=== PATIENT | female | born 1935 | race Caucasian/White ===

== ENCOUNTER 2024-11-22 19:15 | Emergency (ER) | payer OTHER, MEDICARE ==
--- NOTE | 2024-11-22 20:04 | RAD REPORT ---
EXAMINATION: XR LEFT SHOULDER CLINICAL INDICATION: Female, 89 years old. PAIN TECHNIQUE: Multiple views of the left shoulder were obtained. COMPARISON: No prior exam. FINDINGS: Diffuse osteopenia. High riding humeral head may indicate underlying rotator cuff tear. No acute fracture or dislocation.
[2024-11-22 20:13] LABS: PT Prothrombin Time 11.9 SECONDS (10-13.0); PTT, Activated Partial Thromb 26.4 SECONDS (27.2-37.4); Protime INR 1.05
[2024-11-22 20:18] LABS: Anion Gap 9.7 mEq/L (5.0-15.0); Potassium 3.7 mEq/L (3.5-5.1)
--- NOTE | 2024-11-22 20:18 | RAD REPORT ---
EXAM: CT brain without contrast HISTORY: TRAUMA COMPARISON: 09/05/2016 TECHNIQUE: Multiple contiguous axial images were obtained and a CT of the brain without contrast. Sag ittal and coronal reformats were performed. One or more of the following dose reduction techniques were used: Automated exposure control, adjust ment of the mA and/or kV according to patient size, and/or iterative reconstruction. FINDINGS: No evidence of hydrocephalus, intracranial hemorrhage, or extra-axial fluid collection. Moderate brain atrophy with moderate periventricular and deep white matter chronic microvascular isc hemic changes present. No evidence of midline shift or areas of brain edema. The calvarium is intact. The visualized paranasal sinuses and mastoid air cells are essentially clear . IMPRESSION: No evidence of acute intracranial abnormality. EXAM: CT of the cervical spine without contrast HISTORY: Neck pain, injury TRAUMA TECHNIQUE: Multiple contiguous axial images were obtained in a CT of the cervical spine without contr ast. Sagittal and coronal reformats were performed. FINDINGS: The vertebral bodies demonstrate normal height and alignment. No evidence of acute fracture or subluxation.. Moderate multilevel mid and lower cervical degenerative changes. No prevertebral soft tissue swelling is seen. The posterior facets are well aligned. Normal alignment of the skull base with the cervical spine is seen. Moderate bilateral carotid atherosclerosis. The lung apices are unremarkable. IMPRESSION: No evidence of acute osseous abnormality of the cervical spine.
--- NOTE | 2024-11-22 20:18 | RAD REPORT ---
EXAMINATION: CT MAXILLOFACIAL WITHOUT CONTRAST CLINICAL INDICATION: TRAUMA TECHNIQUE: Axial images were obtained through the facial bones and orbits without intravenous contras t. Sagittal and coronal reconstructions were created from the data. One or more of the following dose reduction techniques were used: Automated exposure control, adjustment of the mA and/or kV accor ding to patient size, and/or iterative reconstruction. Unless otherwise specified, incidental findings do not require dedicated imaging follow-up. COMPARISON: No prior exam. FINDINGS: SOFT TISSUE: No significant abnormalities. BONES: No evidence of fracture, dislocation, or aggressive osseous lesions. No lesion of the visuali zed skull base or calvarium. ORBITS: The globes are intact. No intraorbital hemorrhage or mass. SINUSES: The visualized paranasal sinuses and mastoid air cells are essentially clear. IMPRESSION: No acute or concerning abnormalities.
[2024-11-22 20:19] LABS: Specific Gravity 1.025 (1.005-1.030); Sqamous Epithelial <5 /HPF (None Seen); Urine Bacteria <20 /HPF (<20); Urine Bilirubin NEGATIVE (Negative); Urine Blood Negative (Negative); Urine Clarity Clear (Clear); Urine Color Light-Yellow (Yellow); Urine Culture Reflex Order NOT NEEDED; Urine Glucose 3+ (Negative); Urine Ketones NEGATIVE (Negative); Urine Micro Reflex YN NO BILL MICROSCOPIC; Urine Mucus Slight /HPF (None Seen); Urine Nitrite NEGATIVE (Negative); Urine Protein NEGATIVE (Negative); Urine RBC <5 /HPF (None Seen); Urine Urobilinogen Normal (Normal)
[2024-11-22] MEDS ORDERED: FLUORESCEIN SODIUM 1 MG/WRAP ONE (20:31)
[2024-11-22] MEDS ORDERED: TETRACAINE HCL 0.5% 4ML OPTH ONE (20:31)
[2024-11-22] MEDS ORDERED: NA CHLORIDE 0.9% 1,000 ML ONE (20:31)
[2024-11-22 20:40] LABS: Absolute Basophils 0.1 K/uL (0-0.5); Absolute Eosinophils 0.1 K/uL (0-0.5); Absolute Lymphocytes (CBC) 1.5 K/uL (0.7-4.9); Absolute Monocytes 0.7 K/uL (0.1-1.3); Absolute Neutrophil 7.1 K/uL (1.8-8.0); Eosinophils % 1.4 % (0-4.4); Hematocrit 36.7 % (36.0-45.0); Lymphocytes % 15.5 % (15.3-44.8); MCHC 32.8 g/dL (32.0-36.0); MCV 88.4 fL (80-100); MPV 7.9 fL (7.6-11.3); Monocytes % 7.7 % (3.3-12.3); Neutrophils % 74.4 % (41.7-73.7); Nucleated Red Blood Cells % 0.1 % (0-0); Platelets 327 thou/uL (152-406); RBC Red Blood Cell Count 4.15 M/uL (3.86-4.86); Red Cell Distribution Width 14.3 % (12.1-15.2)
--- NOTE | 2024-11-22 22:14 | ER ---
Nurse's Notes [facility] Name: Milli Fang Age: 89 yrs Sex: Female : 1935 Arrival Date: 11/22/2024 Time: 19:15 Bed 2 Private MD: Diagnosis: Fall on same level, unspecified;Conjunctival hemorrhage, right eye Presentation: 11/22 19:20 Chief complaint: EMS states: patient from [place] slipped and fell, hitting R eye on al5 corner [facility]. patient on blood thinner, no loc. Care prior to arrival: None. Mechanism of Injury: Fall from standing position. Trauma event details: Injury occurred in the [facility], Injury occurred: at home. Injury occurred: November 22, 2024. 19:20 Acuity: BILL 3 al5 19:20 Method Of Arrival: EMS: [facility] al5 19:29 Coronavirus screen: At this time, the client does not indicate any symptoms associated al5 with coronavirus-19. Ebola Screen: No symptoms or risks identified at this time. Initial Sepsis Screen: Does the patient meet any 2 criteria? No. Patient's initial sepsis screen is negative. Does the patient have a suspected source of infection? No. Patient's initial sepsis screen is negative. Risk Assessment: Do you want to hurt yourself or someone else? Patient reports no desire to harm self or others. Onset of symptoms was November 22, 2024. Triage Assessment: 19:29 General: see trauma assessment. al5 Trauma Activation: Physician: ED Physician; Name: ; Notified At: ; Arrived At: Physician: General Surgeon; Name: ; Notified At: ; Arrived At: Physician: Radiology; Name: ; Notified At: ; Arrived At: Physician: Respiratory; Name: ; Notified At: ; Arrived At: Physician: Lab; Name: ; Notified At: ; Arrived At: 19:20 n/a al5 Historical: - Allergies: 19:29 ambien; al5 19:29 Lyrica; al5 - Home Meds: 19:31 aspirin 81 mg Oral tablet,chewable 1 tab daily [Active]; atorvastatin 10 mg oral tablet al5 1 tab every day at bedtime [Active]; clopidogrel 75 mg oral tablet 1 tab every other day [Active]; donepezil 10 mg oral tablet 1 tab daily [Active]; duloxetine 60 mg oral capsule,delayed release (e.c.) 1 cap 2 times per day [Active]; esomeprazole magnesium 40 mg oral capsule,delayed release (e.c.) 1 cap daily [Active]; fentanyl 12 mcg/hr Topical patch, transdermal 72 hours 1 patch every 72 hours [Active]; gabapentin 100 mg oral capsule 1 cap daily [Active]; insulin lispro 100 unit/mL subcutaneous Insulin Pen 8 units once daily before lunch [Active]; insulin lispro 100 unit/mL subcutaneous Insulin Pen 3 units once daily before dinner [Active]; isosorbide mononitrate 30 mg Oral Tablet, Extended Release 24 hr 1 tab daily [Active]; Lantus U-100 Insulin 100 unit/mL Sub-Q solution 30 units daily [Active]; latanoprost 0.005 % ophthalmic (eye) drops 1 drop every evening [Active]; levetiracetam 250 mg oral tablet 1 tabs 2 times per day [Active]; levothyroxine 75 mcg capsule 1 cap daily [Active]; metoprolol succinate 100 mg oral Tablet, Extended Release 24 hr 1 tab daily [Active]; Myrbetriq 50 mg oral Tablet, Extended Release 24 hr 1 tab daily [Active]; spironolactone 25 mg Oral tablet 1 tab daily [Active]; trazodone 150 mg Oral tablet 1 tab nightly [Active]; Trulicity 0.75 mg/0.5 mL subcutaneous Pen Injector 0.75 mg every week on thursday [Active]; Vitamin D3 125 mcg (5,000 unit) oral tablet 1 tab daily [Active]; loperamide 2 mg Oral capsule every 4 hours as needed for diarrhea [Active]; meclizine 25 mg Oral tablet 3 times a day as needed for dizziness [Active]; - PMHx: 19:29 Seizure; Diabetes mellitus; Hypertensive disorder; Depressive disorder; Hypothyroidism; 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 - Infectious Disease History:: Denies. - Social history:: Smoking status: unknown. Screenin:27 Abuse screen: Denies threats or abuse. Denies injuries from another. Nutritional al5 screening: No deficits noted. Tuberculosis screening: No symptoms or risk factors identified. 19:44 [facility] ED Fall Risk Assessment (Adult) History of falling in the last 3 months, al5 including since admission Yes- single mechanical fall (1 pt) Confusion or Disorientation Yes (5 pts) Intoxicated or Sedated No (0 pts) Impaired Gait Yes (1 pt) Mobility Assist Device Used Yes (1 pt) Altered Elimination No (0 pt) Score/Fall Risk Level 3 or more points = High Risk Oriented to surroundings, Maintained a safe environment, Hourly rounding (assess needs \T\ fall precautionary measures) done, Utilized family, sitter, or virtual instrument panel assembler as indicated. Primary Survey: 19:26 NO uncontrolled hemorrhage observed. A: The client is alert. Airway: patent, No al5 supplemental oxygen in use on arrival. Breathing/Chest: Respiratory effort: spontaneous, unlabored, Respiratory pattern: regular. Circulation: Skin color: pink, Skin temperature: warm, dry. Disability Pupils are equal, round, reactive to light and accommodation. Client is alert. Exposure/Environment: Obvious injury(ies) are noted at this time: R eye. 20:36 Reassessment Alertness and Airway: Awake and alert. The airway is patent. Breathing: al5 Spontaneous respiratory effort, equal unlabored respirations, breath sounds clear bilaterally, regular pattern with symmetrical chest rise and fall. Circulation: No external hemorrhage noted. Regular and strong central pulse, skin warm/dry/normal color. Disability: Pupils Pupils are equal, round, reactive to light and accomodation. Alert. Secondary Survey: 19:27 HEENT: No deficits noted. Eyes: Other some blood in R sclera. Gastrointestinal: No al5 deficits noted. : No deficits noted. Musculoskeletal: No deficits noted. Assessment: 19:21 General: Appears in no apparent distress. comfortable, Behavior is calm, cooperative. al5 Pain: Complains of pain in head. Neuro: Level of Consciousness is awake, obeys commands, Oriented to person, situation. EENT: Sclera/Cornea some blood to R sclera. Cardiovascular: Capillary refill < 3 seconds Patient's skin is warm and dry. Respiratory: Airway is patent Respiratory effort is even, unlabored, Respiratory pattern is regular, symmetrical. GI: No signs and/or symptoms were reported involving the gastrointestinal system. : No signs and/or symptoms were reported regarding the genitourinary system. Derm: Skin is intact, Skin is pink, warm \T\ dry. normal. Musculoskeletal: No signs and/or symptoms reported regarding the musculoskeletal system. 20:36 Reassessment: Patient appears in no apparent distress at this time. No changes from al5 previously documented assessment. Patient and/or family updated on plan of care and expected duration. Pain level reassessed. alert to baseline, respirations even and unlabored. family at bedside. 23:24 Reassessment: Pt assisted into wheel chair and into families car. Pt awake and alert. jb4 Able to ambulate with assistance to wheelchair and car. Vital Signs: 19:27 BP 177 / 71; Pulse 79; Resp 16; Temp 98.1; Pulse Ox 100% on R/A; Weight 83.46 kg; al5 Height 5 ft. 7 in. ; 20:00 BP 183 / 83; Pulse 78; Resp 16; Pulse Ox 99% ; al5 20:30 BP 175 / 73; Pulse 72; Resp 16; Pulse Ox 100% ; al5 19:27 Body Mass Index 28.82 (83.46 kg, 170.18 cm) al5 Mary Coma Score: 19:27 Eye Response: spontaneous(4). Motor Response: obeys commands(6). Verbal Response: al5 confused(4). Total: 14. 19:27 oriented to baseline aaox2 al5 Trauma Score (Adult): 19:27 Eye Response: spontaneous(1); Verbal Response: confused(1); Motor Response: obeys al5 commands(2); Systolic BP: > 89 mm Hg(4); Respiratory Rate: 10 to 29 per min(4); [place] Score: 14; Trauma Score: 12; orient to baseline, aaox2 ED Course: 19:20 Patient arrived in ED. al5 19:21 Triage completed. al5 19:27 Patient has correct armband on for positive identification. Bed in low position. Call al5 light in reach. Side rails up X2. Patient maintains SpO2 saturation greater than 95% on room air. 19:27 No provider procedures requiring assistance completed. Patient maintains SpO2 al5 saturation greater than 95% on room air. 19:28 Arm band placed on right wrist. Patient placed in the treatment room, in view of staff al5 members, on pulse oximetry. 19:28 Thermoregulation: warm blanket given to patient. al5 19:32 Omaira Cantu PA-C is PHCP. sb4 19:32 Capo Elder MD is Attending Physician. sb4 19:44 Provided Education on: plan of care. al5 19:45 Fay Yancey, RN is Primary Nurse. al5 19:51 Shoulder Left (2 View) XRAY In Process Unspecified. EDMS 20:08 Inserted saline lock: 22 gauge in right antecubital area, using aseptic technique. al5 Blood collected. Flushed with 10 mL NS. 20:12 Head C Spine MPR Wo Con CT In Process Unspecified. EDMS 20:12 Facial Bones W/O Con CT In Process Unspecified. EDMS 23:24 IV discontinued, intact, bleeding controlled, No redness/swelling at site. Pressure jb4 dressing applied. Administered Medications: 20:35 Drug: NS 0.9% IV 1000 ml IV at 1 bolus Per protocol; to be given as a bolus over 60 al5 minutes Route: IV; Rate: 1 bolus; Site: right antecubital; Medication: 19:43 VIS not applicable for this client. al5 Intake: 19:27 n/a al5 Outcome: 22:13 Discharge ordered by MD. sb4 23:24 Discharged to home via wheelchair, with family, jb4 23:24 Condition: stable 23:24 Discharge instructions given to family, Instructed on discharge instructions, follow up and referral plans. Demonstrated understanding of instructions, follow-up care, 23:28 Patient left the ED. jb4 Signatures: Dispatcher [employer] Jaret Sierra RN RN jb4 Omaira Cantu PA-C PA-C sb4 Fay Yancey, ILIANA RN al5 Corrections: (The following items were deleted from the chart) 20:36 19:27 HEENT: No deficits noted. al5 al5
--- NOTE | 2024-11-22 22:14 | EDPHYS ---
Physician Documentation [facility] Name: Milli Fang Age: 89 yrs Sex: Female : 1935 Arrival Date: 11/22/2024 Time: 19:15 Bed 2 Private MD: ED Physician Capo Elder HPI: 11/22 22:41 This 89 yrs old Female presents to ER via EMS with complaints of Fall Injury, Eye sb4 Injury. 22:41 Patient states that she was moving from her wheelchair to her bed when she tripped and sb4 fell forward, hitting her head and right eye against the corner of a piece of furniture. No loss of consciousness. She has bruising to the right face forehead and a small subconjunctival hemorrhage in the right eye. Is complaining of pain in her neck and left arm. Historical: - Allergies: 19:29 ambien; al5 19:29 Lyrica; al5 - Home Meds: 19:31 aspirin 81 mg Oral tablet,chewable 1 tab daily [Active]; atorvastatin 10 mg oral tablet al5 1 tab every day at bedtime [Active]; clopidogrel 75 mg oral tablet 1 tab every other day [Active]; donepezil 10 mg oral tablet 1 tab daily [Active]; duloxetine 60 mg oral capsule,delayed release (e.c.) 1 cap 2 times per day [Active]; esomeprazole magnesium 40 mg oral capsule,delayed release (e.c.) 1 cap daily [Active]; fentanyl 12 mcg/hr Topical patch, transdermal 72 hours 1 patch every 72 hours [Active]; gabapentin 100 mg oral capsule 1 cap daily [Active]; insulin lispro 100 unit/mL subcutaneous Insulin Pen 8 units once daily before lunch [Active]; insulin lispro 100 unit/mL subcutaneous Insulin Pen 3 units once daily before dinner [Active]; isosorbide mononitrate 30 mg Oral Tablet, Extended Release 24 hr 1 tab daily [Active]; Lantus U-100 Insulin 100 unit/mL Sub-Q solution 30 units daily [Active]; latanoprost 0.005 % ophthalmic (eye) drops 1 drop every evening [Active]; levetiracetam 250 mg oral tablet 1 tabs 2 times per day [Active]; levothyroxine 75 mcg capsule 1 cap daily [Active]; metoprolol succinate 100 mg oral Tablet, Extended Release 24 hr 1 tab daily [Active]; Myrbetriq 50 mg oral Tablet, Extended Release 24 hr 1 tab daily [Active]; spironolactone 25 mg Oral tablet 1 tab daily [Active]; trazodone 150 mg Oral tablet 1 tab nightly [Active]; Trulicity 0.75 mg/0.5 mL subcutaneous Pen Injector 0.75 mg every week on thursday [Active]; Vitamin D3 125 mcg (5,000 unit) oral tablet 1 tab daily [Active]; loperamide 2 mg Oral capsule every 4 hours as needed for diarrhea [Active]; meclizine 25 mg Oral tablet 3 times a day as needed for dizziness [Active]; - PMHx: 19:29 Seizure; Diabetes mellitus; Hypertensive disorder; Depressive disorder; Hypothyroidism; 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 - Infectious Disease History:: Denies. - Social history:: Smoking status: unknown. ROS: 22:41 Constitutional: Negative for fever, chills, and weight loss, sb4 22:41 MS/extremity: Positive for injury or acute deformity, pain, of the neck and head, Left shoulder, 22:41 All other systems are negative, Exam: 22:41 Cardiovascular: Regular rate and rhythm with a normal S1 and S2. Respiratory: No sb4 increased work of breathing, no retractions or nasal flaring. Abdomen/GI: Soft, non-tender, no distension. 22:41 Constitutional: The patient appears in no acute distress, alert, awake, 22:41 Head/face: Noted is ecchymosis, that is mild, of the forehead, 22:41 Eyes: Periorbital structures: appear normal, no acute changes, Pupils: equal, round, and reactive to light and accomodation, Extraocular movements: intact throughout, Conjunctiva: subconjunctival hemorrhage(s), seen in the right eye, at 7 o'clock, Corneas: abrasion, is not appreciated, foreign body, is not appreciated, a fluorescein strip employed to appreciate the findings, 22:41 Musculoskeletal/extremity: Extremities: noted in the left arm: pain, There is no evidence of decreased ROM, deformity, ecchymosis, swelling, tenderness, Vital Signs: 19:27 BP 177 / 71; Pulse 79; Resp 16; Temp 98.1; Pulse Ox 100% on R/A; Weight 83.46 kg; al5 Height 5 ft. 7 in. ; 20:00 BP 183 / 83; Pulse 78; Resp 16; Pulse Ox 99% ; al5 20:30 BP 175 / 73; Pulse 72; Resp 16; Pulse Ox 100% ; al5 19:27 Body Mass Index 28.82 (83.46 kg, 170.18 cm) al5 Mary Coma Score: 19:27 Eye Response: spontaneous(4). Motor Response: obeys commands(6). Verbal Response: al5 confused(4). Total: 14. 19:27 oriented to baseline aaox2 al5 Trauma Score (Adult): 19:27 Eye Response: spontaneous(1); Verbal Response: confused(1); Motor Response: obeys al5 commands(2); Systolic BP: > 89 mm Hg(4); Respiratory Rate: 10 to 29 per min(4); [place] Score: 14; Trauma Score: 12; orient to baseline, aaox2 Procedures: 22:44 Eye Exam: Tetracaine. sb4 MDM: 19:32 Medical Screening Exam initiated sb4 22:44 Data reviewed: vital signs, nurses notes, EMS record, lab test result(s), radiologic sb4 studies, and as a result, I will discharge patient. Historians other than the Patient: Daughter/Son: Daughters. Counseling: I had a detailed discussion with the patient and/or guardian regarding the historical points, exam findings, and any diagnostic results supporting the discharge/admit diagnosis, lab results, radiology results, the need for outpatient follow up, for definitive care, to return to the emergency department if symptoms worsen or persist or if there are any questions or concerns that arise at home. 11/22 19:40 Order name: CBC with Diff; Complete Time: 20:43 sb4 11/22 19:40 Order name: BMP; Complete Time: 20:19 sb4 11/22 19:40 Order name: UAM; Complete Time: 20:19 sb4 11/22 19:40 Order name: PT-INR; Complete Time: 20:13 sb4 11/22 19:40 Order name: Ptt, Activated; Complete Time: 20:13 sb4 11/22 19:40 Order name: Head C Spine MPR Wo Con CT; Complete Time: 20:19 sb4 11/22 19:40 Order name: Facial Bones W/O Con CT; Complete Time: 20:19 sb4 11/22 19:40 Order name: Shoulder Left (2 View) XRAY; Complete Time: 20:05 sb4 11/22 19:40 Order name: IV Start; Complete Time: 19:57 sb4 11/22 20:20 Order name: Fluoresene Opth strip; Complete Time: 20:30 sb4 Administered Medications: 20:35 Drug: NS 0.9% IV 1000 ml IV at 1 bolus Per protocol; to be given as a bolus over 60 al5 minutes Route: IV; Rate: 1 bolus; Site: right antecubital; Disposition Summary: 11/22/24 22:13 Discharge Ordered Notes: Location: Home sb4 Problem: new sb4 Symptoms: have improved sb4 Condition: Stable sb4 Diagnosis - Fall on same level, unspecified sb4 - Conjunctival hemorrhage, right eye sb4 Followup: sb4 - With: Emergency Department - When: As needed - Reason: Trouble breathing, Worsening of condition Discharge Instructions: - Discharge Summary Sheet sb4 - Subconjunctival Hemorrhage sb4 - Fall Prevention in the Home, Adult, [id number] sb4 - Head Injury, Adult, [id number] sb4 Forms: - Patient Portal Instructions sb4 - Leadership Thank You Letter sb4 Signatures: Dispatcher [employer] EDOmaira Angel PA-C PA-C sb4 Fay Yancey RN RN al5 Corrections: (The following items were deleted from the chart) 19:41 19:41 CBC+H.LAB.BRZ ordered. EDMS EDMS 19:41 19:41 BASIC METABOLIC PANEL+C.LAB.BRZ ordered. EDMS EDMS 19:41 19:41 Urinalysis W/Microscopic+U.LAB.BRZ ordered. EDMS EDMS 19:41 19:41 PROTIME (+INR)+COAG.LAB.BRZ ordered. EDMS EDMS 19:41 19:41 PTT, ACTIVATED+COAG.LAB.BRZ ordered. EDMS EDMS
[2024-11-23 06:08] VITALS: TEMP 98.1
[2024-11-23 06:24] VITALS: BP 175/73; O2SAT 100
== END 2024-11-22 23:28 | disposition home or self-care (01) ==
LOC: ER 19:15
DX: H11.31 Conjunctival hemorrhage, right eye (principal); M54.2 Cervicalgia; M79.602 Pain in left arm; W18.30XA Fall on same level, unspecified, initial encounter; E11.9 Type 2 diabetes mellitus without complications; Z79.4 Long term (current) use of insulin; I10 Essential (primary) hypertension
CPT/HCPCS: 85025; 81001; 80048; 36415; 85610; 85730; 70450; 72125; 70486; 76377; 73030; 99284; J7030